=== PATIENT | female | born 1980 | race Caucasian/White ===

== ENCOUNTER → 2019-09-04 | Outpatient (CLI) | payer OTHER ==
--- NOTE | 2019-09-04 18:56 | Diagnostic Imaging Report ---
PROCEDURE: CT chest without contrast. TECHNIQUE: Multiple contiguous axial images were obtained through the chest without the use of intravenous contrast. Auto Exposure Controls were utilized during the CT exam to meet ALARA standards for radiation dose reduction. DATE: September 04, 2019. COMPARISON: None. INDICATION: 38-year-old female, cough and chest tightness. PROCEDURE: Axial noncontrasted CT images of the chest. Noncontrasted limits the evaluation of the mediastinum and vascular structures. FINDINGS: There is no identified pulmonary nodule. There is no lung mass. There is no focal airspace consolidation. There is no pneumothorax. There is no pleural effusion. The central airways are patent. The heart is not enlarged. There is no pericardial effusion. There is no identified abnormally enlarged mediastinal or axillary lymph node meeting CT size criteria for adenopathy. The imaged portions of the upper abdomen are unremarkable in appearance. There is no acute bony abnormality. IMPRESSION: 1. No identified acute cardiopulmonary abnormality. Dictated by: Dictated on workstation # [id number]
== END ==
LOC: RAD FS 15:31
PROVIDERS: ATTEND Nurse Practitioner Family
DX: R05 Cough (principal); R93.89 Abnormal findings on diagnostic imaging of other specified body structures; R07.89 Other chest pain
CPT/HCPCS: 71250